=== PATIENT | female | born 1955 | race Caucasian/White ===

== ENCOUNTER → 2020-02-09 18:37 | Outpatient (CLI) | payer MEDICARE | END | disposition home or self-care (01) | LOC: D.MAMMO 11:45 | PROVIDERS: ATTEND Nurse Practitioner | DX: Z12.31 Encounter for screening mammogram for malignant neoplasm of breast (principal) ==

== ENCOUNTER 2020-03-02 09:00 | Outpatient (CLI) | payer MEDICARE | END 2020-03-02 10:00 | disposition home or self-care (01) | LOC: D.MAMMO 09:00 | PROVIDERS: ATTEND Nurse Practitioner | DX: R92.8 Other abnormal and inconclusive findings on diagnostic imaging of breast (principal) ==

== ENCOUNTER → 2020-03-17 23:00 | Outpatient (CLI) | payer MEDICARE | LOC: D.MAMMO 08:00 | PROVIDERS: ATTEND Nurse Practitioner | DX: N63.12 Unspecified lump in the right breast, upper inner quadrant (principal) ==

== ENCOUNTER 2021-02-28 15:30 | Outpatient (CLI) | payer MEDICARE | END 2021-02-28 16:00 | disposition home or self-care (01) | LOC: D.MAMMO 15:30 | PROVIDERS: ATTEND Nurse Practitioner | DX: Z12.31 Encounter for screening mammogram for malignant neoplasm of breast (principal) ==